=== PATIENT | male | born 1975 ===

== ENCOUNTER 2019-03-11 09:08 | Outpatient (CLI) | payer BC ==
[2019-03-11 10:30] LABS: Hematocrit 45.2 % (35.5-45.6); Hemoglobin 15.4 gm/dl (11.8-15.2); Mean Corpuscular HGB Conc 34 % (32-34); Mean Corpuscular Volume 87 fl (84-94); Red Blood Count 5.17 M/mm3 (3.65-5.03); Red Cell Distribution Width 13.6 % (13.2-15.2)
[2019-03-11 10:36] LABS: Bilirubin,Urine NEG (Negative); Blood,Urine NEG (Negative); Color,Urine Yellow (Yellow); Mucus,Urine FEW /HPF; Protein,Urine <15 mg/dL mg/dL (Negative); Urobilinogen,Urine < 2.0 mg/dL (<2.0)
[2019-03-11 10:41] LABS: Alanine Aminotransferase 52 units/L (7-56); Albumin 4.6 g/dL (3.9-5); BUN/Creatinine Ratio 14; Blood Urea Nitrogen 10 mg/dL (9-20); Calcium 9.1 mg/dL (8.4-10.2); Chol/HDL Ratio 5.48 %; HDL Cholesterol 37 mg/dL (40-59); Hemolysis Index 13; LDL Cholesterol,Direct 155 mg/dL (50-130)
[2019-03-11 11:14] LABS: Platelet Count 249 K/mm3 (140-440)
== END 2019-03-11 09:09 | disposition home or self-care (01) ==
LOC: LAB 09:08
PROVIDERS: ATTEND Internal Medicine
DX: E66.09 Other obesity due to excess calories (principal)
CPT/HCPCS: 36415; 80053; 80061; 81001; 82306; 82607; 83036; 84443; 85027

== ENCOUNTER 2019-06-24 08:35 | Outpatient (CLI) | payer BC ==
[2019-06-24 11:08] LABS: Chol/HDL Ratio 3.94 %
[2019-06-27 17:57] LABS: Vitamin D, 25-OH, D2 32 ng/mL
== END 2019-06-24 08:36 | disposition home or self-care (01) ==
LOC: LAB 08:35
PROVIDERS: ATTEND Internal Medicine
DX: E11.65 Type 2 diabetes mellitus with hyperglycemia (principal); E55.9 Vitamin D deficiency, unspecified; E78.5 Hyperlipidemia, unspecified
CPT/HCPCS: 36415; 80061; 82306; 83036

== ENCOUNTER 2019-07-08 15:39 | Outpatient (CLI) | payer BC ==
[2019-07-08 16:03] LABS: Bilirubin,Urine NEG (Negative); Blood,Urine NEG (Negative); Color,Urine Straw (Yellow); Mucus,Urine FEW /HPF; Protein,Urine <15 mg/dL mg/dL (Negative); Sperm,Urine FEW /HPF (NP); Urobilinogen,Urine < 2.0 mg/dL (<2.0); WBC,Urine < 1.0 /HPF (0.0-6.0)
[2019-07-08 16:10] LABS: Creatinine,Urine 78.5 mg/dL (0.1-20.0); Microalbumin/Creatinine Ratio 16.5 ug/mg
== END 2019-07-08 15:40 | disposition home or self-care (01) ==
LOC: LAB 15:39
PROVIDERS: ATTEND Internal Medicine
DX: N39.0 Urinary tract infection, site not specified (principal); E11.65 Type 2 diabetes mellitus with hyperglycemia
CPT/HCPCS: 81001; 82043